=== PATIENT | male | born 2000 ===

== ENCOUNTER 2023-11-02 08:23 | Outpatient (CLI) | payer OTHER ==
[2023-11-02 10:00] VITALS: BP 129/80; PULSE 69; RESP 20; TEMP 97.9; O2SAT 100
== END 2023-11-02 12:45 | disposition home or self-care (01) ==
LOC: CSU 08:23 → EDSTATUS 11-05 12:57
PROVIDERS: ATTEND Nurse Practitioner Psychiatric/Mental Health
DX: F41.0 Panic disorder [episodic paroxysmal anxiety] (principal); F32.A Depression, unspecified; Z60.8 Other problems related to social environment; Z63.79 Other stressful life events affecting family and household
CPT/HCPCS: 90839; 90840